=== PATIENT | male | born 1975 | race Caucasian/White ===

== ENCOUNTER → 2017-03-17 | Outpatient (CLI) | payer BC | LOC: LAB 16:36 | DX: L08.9 Local infection of the skin and subcutaneous tissue, unspecified (principal) | CPT/HCPCS: 87070; 87077; 87147; 87186; 87205 ==

== ENCOUNTER 2022-07-31 16:00 | Inpatient (IN) | payer BC ==
[~2022-07-31] VITALS: Ht 185.4 cm; Wt 104.3 kg
[2022-07-31] MEDS ORDERED: FUROSEMIDE20 MG PO (18:58)
[2022-07-31] MEDS ORDERED: OZEMPIC0.25 MG/01 SQ (18:59)
[2022-07-31] MEDS ORDERED: [UNRECOGNIZED DRUG - OTHER] (18:59)
[2022-07-31 22:50] VITALS: BP 134/105
[2022-07-31] MEDS ORDERED: K-TAB ER20 ME1 PO (22:59)
[2022-07-31] MEDS ORDERED: METO25ER PO (23:00)
--- NOTE | 2022-08-01 04:40 | NUR ---
SHIFT SUMMARY 47 YR M ADMITTED ON 07/31/22. FULL CODE. ASSUMED CARE OF PT AT 2245. NO ACUTE CHANGES THIS SHIFT. PT IS A&O X 4 AND IS INDEPENDANT IN THE ROOM. HE STATED THAT HE FEELS LIKE HE IS SUFFOCATING IF HE LAYS FLAT. HE HAS THE BED IN A 75-90 DEGREE POSITION TO BREATHE CONFORTABLY. HE WAS GIVEN DIURETICS IN THE ED AND STATES THAT HE IS FEELING SLIGHTLY BETTER. HE STATED THAT HE WAS VERY TIRED AND HE HAS SLEPT FOR MOST OF THIS SHIFT ALTHOUGH HE HAS BEEN UP TO THE BATHROOM TO URINATE QUITE A FEW TIMES.
[2022-08-01 05:00] VITALS: BP 131/95
[2022-08-01 06:03] LABS: Albumin, Blood 3.7 g/dL (3.4-5.0); Albumin/Globulin Ratio 1.2 (0.8-1.8); Bilirubin, Total 0.8 mg/dL (0.1-1.0); Bun/Creatinine Ratio 18.4 (12.0-20.0); Calcium, Blood 9.4 mg/dL (8.5-10.1); Creatinine, Blood 0.98 mg/dL (0.60-1.20); Globulin, Blood 3.2 g/dL (2.2-4.0); Potassium, Blood 3.7 mmol/L (3.5-5.5); Total Protein, Blood 6.9 g/dL (6.4-8.2)
[2022-08-01 07:48] VITALS: BP 134/96
[2022-08-01 15:33] VITALS: BP 134/94
--- NOTE | 2022-08-01 17:11 | NUR ---
SHIFT SUMMARY PT IS ALERT AND ORIENTED X4. INDEPENDENT IN THE ROOM. DENIES CHEST PAIN. WALKED AROUND UNIT X4 THIS SHIFT. PT REPORTS SOME SOB AFTER AMBULATING TO ELEVATOR. BUT REPORTS THAT IT IS GETTING BETTER EVERY HOUR. NO ACUTE CHANGES THIS SHIFT
[2022-08-02 05:36] VITALS: BP 120/89
--- NOTE | 2022-08-02 07:01 | NUR ---
Shift Summary Pt slept well and states he was able to breath easier last night than he has in a while. Slept well t/o the night.
[2022-08-02 07:21] VITALS: BP 120/95
--- NOTE | 2022-08-02 08:49 | NUR ---
PT REFUSING MEDICATIONS. EDUCATED PATIENT ON BENEFITS AND RISKS OF MEDICATIONS INFORMED PT OF RIGHT TO REFUSE. CALM AND COOPERATIVE.
[2022-08-02 15:04] VITALS: BP 107/88
--- NOTE | 2022-08-02 17:55 | NUR ---
PT IS ALERT AND ORIENTED. DENIES SOB OR PAIN IN CHEST. SPOUSE AT BEDSIDE. PT STATED THAT HE WANTED TO LEAVE TODAY. REMAINS HOPEFUL FOR DISCHARGE. EDUCATED PT ON RIGHTS TO LEAVE IF HE WANTED. TALKED WITH MD TODAY ABOUT PT CONCERNS. NO ACUTE CHANGES. ALERT AND ORIENTED X4. INDEPENDENT.
--- NOTE | 2022-08-02 18:10 | NUR ---
PT EDUCATED ON DIET RECOMMENDATIONS AND FLUID RESTRICTION. PT WILL USE URINAL TO AID IN MEASURING OUTPUT.
[2022-08-02 19:05] VITALS: BP 112/88
[2022-08-03] VITALS (10 sets, daily range): BP systolic 82–120; BP diastolic 56–76
[2022-08-03 04:48] LABS: BASOPHILS ABSOLUTE AUTO 0.05 K/mm3 (0.00-0.23); BASOPHILS PERCENT AUTO 1 % (0-2); EOSINOPHILS ABSOLUTE AUTO 0.23 K/mm3 (0.00-0.68); EOSINOPHILS PERCENT AUTO 3 % (0-6); Hematocrit 39.6 % (37.0-53.0); Hemoglobin 13.4 g/dL (13.5-17.5); IMMATURE GRAN ABSOLUTE AUTO 0.02 K/mm3 (0.00-0.10); IMMATURE GRAN PERCENT AUTO 0 % (0-1); LYMPHOCYTES ABSOLUTE AUTO 2.32 K/mm3 (0.84-5.20); LYMPHOCYTES PERCENT AUTO 31 % (21-46); MONOCYTES ABSOLUTE AUTO 0.53 K/mm3 (0.16-1.47); MONOCYTES PERCENT AUTO 7 % (4-13); Mean Corpuscular HGB 29.8 pg (26.0-34.0); Mean Corpuscular HGB Conc 33.8 g/dL (31.5-36.5); Mean Corpuscular Volume 88 fL (80-100); Mean Platelet Volume 10.1 fL (9.1-12.4); NEUTROPHILS ABSOLUTE AUTO 4.29 K/mm3 (1.96-9.15); NEUTROPHILS PERCENT AUTO 58 % (41-73); Platelet Count 250 K/mm3 (150-400); RDW Coefficient Variation 12.8 % (11.7-14.2); RDW Standard Deviation 40.9 fL (35.1-46.3); White Blood Cell Count 7.44 K/mm3 (4.00-11.30)
[2022-08-03 05:02] LABS: Bun/Creatinine Ratio 22.6 (12.0-20.0); Calcium, Blood 9.5 mg/dL (8.5-10.1); Creatinine, Blood 1.24 mg/dL (0.60-1.20); Potassium, Blood 3.9 mmol/L (3.5-5.5)
--- NOTE | 2022-08-03 05:19 | NUR ---
SHIFT SUMMARY: PT A&O X4. PT PLEASANT AND COOPERATIVE WITH ALL CARE. PT INDEPENDENT IN ROOM. DR. TATE ARRIVED AROUND 2300 FOR CARDIOLOGY CONSULT. PT NPO AFTER MIDNIGHT FOR CARDIAC CATHETERIZATION AND CORONARY ANGIOGRAPHY AT 0900 THIS SHIFT. NS AT 50/HR TO BE STARTED AT 0800. PT ANXIOUS AT BEGINNING OF SHIFT TO GO HOME. PT UNDERSTANDS IMPORTANCE OF STAYING IN HOSPITAL FOR PROCEDURE. ATORVASTATIN AND LISINOPRIL DOASAGE CHANGED PER DR. TATE. CALL LIGHT IN REACH. BED IN LOWEST POSITION. WILL CONTINUE TO MONITOR.
--- NOTE | 2022-08-03 10:35 | NUR ---
LATE ENTRY PT LEFT FOR BMX RIDER AROUND 0915. REPORT GIVEN TO PCU NURSE WHO WILL BE TAKING OVER CARE. PERSONAL ITEMS AND MEDICATIONS DELIVERED TO PCU 15.
== END 2022-08-03 14:26 | disposition short-term general hospital (02) | DRG 286 ==
LOC: ER 16:00 → MEDS 16:01 → PCU 08-03 09:47
PROVIDERS: Internal Medicine; Nurse Practitioner Acute Care; ADMIT Internal Medicine
PROC: 4A023N7 Measurement of Cardiac Sampling and Pressure, Left Heart, Percutaneous Approach (ICD-10-PCS; principal; 2022-08-03)
PROC: B2111ZZ Fluoroscopy of Multiple Coronary Arteries using Low Osmolar Contrast (ICD-10-PCS; 2022-08-03)
DX: I11.0 Hypertensive heart disease with heart failure (principal); I50.23 Acute on chronic systolic (congestive) heart failure; I42.0 Dilated cardiomyopathy; F10.20 Alcohol dependence, uncomplicated; E11.9 Type 2 diabetes mellitus without complications; E78.5 Hyperlipidemia, unspecified; F19.10 Other psychoactive substance abuse, uncomplicated; I08.1 Rheumatic disorders of both mitral and tricuspid valves; I27.20 Pulmonary hypertension, unspecified; Z91.148 Patient's other noncompliance with medication regimen for other reason; I25.2 Old myocardial infarction; Z88.8 Allergy status to other drugs, medicaments and biological substances; Z79.01 Long term (current) use of anticoagulants; Z79.899 Other long term (current) drug therapy; Z87.891 Personal history of nicotine dependence
CPT/HCPCS: 36415; 71260; 76937; 80048; 80053; 82947; 83735; 84484; 85025; 85379; 93005; 93010; 93458; 96374-59; 96376; 96376-59; 99152; 99153; 99285-25; A9270; C1769; C1887; C1894; C8929; G0378; J1644; J1940; J2250; J3010; J7030; J7040; J7050; Q9957; Q9967

== ENCOUNTER → 2022-07-31 | Outpatient (CLI) | payer BC ==
[~2022-07-31] MED LIST: FUROSEMIDE20 MG PO; K-TAB ER20 ME1 PO; METO25ER PO; OZEMPIC0.25 MG/01 SQ; [UNRECOGNIZED DRUG - OTHER]
[2022-07-31 14:30] LABS: BASOPHILS ABSOLUTE AUTO 0.06 K/mm3 (0.00-0.23); BASOPHILS PERCENT AUTO 1 % (0-2); EOSINOPHILS ABSOLUTE AUTO 0.14 K/mm3 (0.00-0.68); EOSINOPHILS PERCENT AUTO 2 % (0-6); Hematocrit 38.5 % (37.0-53.0); Hemoglobin 13.7 g/dL (13.5-17.5); IMMATURE GRAN ABSOLUTE AUTO 0.02 K/mm3 (0.00-0.10); IMMATURE GRAN PERCENT AUTO 0 % (0-1); LYMPHOCYTES ABSOLUTE AUTO 2.28 K/mm3 (0.84-5.20); LYMPHOCYTES PERCENT AUTO 30 % (21-46); MONOCYTES PERCENT AUTO 5 % (4-13); Mean Corpuscular HGB 30.2 pg (26.0-34.0); Mean Corpuscular HGB Conc 35.6 g/dL (31.5-36.5); Mean Corpuscular Volume 85 fL (80-100); NEUTROPHILS ABSOLUTE AUTO 4.74 K/mm3 (1.96-9.15); NEUTROPHILS PERCENT AUTO 62 % (41-73); Platelet Count 273 K/mm3 (150-400); RDW Standard Deviation 39.8 fL (35.1-46.3); Red Blood Cell Count 4.53 M/mm3 (4.30-5.90); White Blood Cell Count 7.64 K/mm3 (4.00-11.30)
[2022-07-31 14:41] LABS: Albumin, Blood 3.9 g/dL (3.4-5.0); Albumin/Globulin Ratio 1.1 (0.8-1.8); Bilirubin, Total 0.8 mg/dL (0.1-1.0); Bun/Creatinine Ratio 15.6 (12.0-20.0); Calcium, Blood 9.7 mg/dL (8.5-10.1); Creatinine, Blood 1.22 mg/dL (0.60-1.20); Globulin, Blood 3.4 g/dL (2.2-4.0); Potassium, Blood 4.3 mmol/L (3.5-5.5); Total Protein, Blood 7.3 g/dL (6.4-8.2)
== END | disposition home or self-care (01) ==
LOC: LAB SHORT 14:24 → LAB 14:24
PROVIDERS: Physician Assistant Surgical
DX: R11.2 Nausea with vomiting, unspecified (principal); R07.9 Chest pain, unspecified
CPT/HCPCS: 80053; 83690; 83880; 84484; 85025

== ENCOUNTER → 2024-05-09 | Outpatient (CLI) | payer BC ==
[2024-05-09 10:51] LABS: BASOPHILS ABSOLUTE AUTO 0.05 K/mm3 (0.00-0.23); BASOPHILS PERCENT AUTO 1 % (0-2); EOSINOPHILS PERCENT AUTO 1 % (0-6); Hematocrit 50.4 % (37.0-53.0); Hemoglobin 17.4 g/dL (13.5-17.5); IMMATURE GRAN ABSOLUTE AUTO 0.02 K/mm3 (0.00-0.10); IMMATURE GRAN PERCENT AUTO 0 % (0-1); LYMPHOCYTES ABSOLUTE AUTO 2.19 K/mm3 (0.84-5.20); LYMPHOCYTES PERCENT AUTO 26 % (21-46); MONOCYTES ABSOLUTE AUTO 0.47 K/mm3 (0.16-1.47); MONOCYTES PERCENT AUTO 6 % (4-13); Mean Corpuscular HGB 30.8 pg (26.0-34.0); Mean Corpuscular HGB Conc 34.5 g/dL (31.5-36.5); Mean Corpuscular Volume 89 fL (80-100); Mean Platelet Volume 9.5 fL (9.1-12.4); NEUTROPHILS ABSOLUTE AUTO 5.46 K/mm3 (1.96-9.15); NEUTROPHILS PERCENT AUTO 66 % (41-73); Platelet Count 285 K/mm3 (150-400); RDW Coefficient Variation 12.4 % (11.7-14.2); RDW Standard Deviation 40.6 fL (35.1-46.3); Red Blood Cell Count 5.65 M/mm3 (4.30-5.90); White Blood Cell Count 8.29 K/mm3 (4.00-11.30)
[2024-05-09 11:03] LABS: Albumin, Blood 4.4 g/dL (3.4-5.0); Albumin/Globulin Ratio 1.1 (0.8-1.8); Bilirubin, Total 0.4 mg/dL (0.1-1.0); Bun/Creatinine Ratio 13.8 (12.0-20.0); Calcium, Blood 9.6 mg/dL (8.5-10.1); Creatinine, Blood 1.09 mg/dL (0.60-1.20); Globulin, Blood 4.1 g/dL (2.2-4.0); Potassium, Blood 4.3 mmol/L (3.5-5.5); Total Protein, Blood 8.5 g/dL (6.4-8.2)
== END ==
LOC: LAB SHORT 10:48 → LAB 10:48
DX: R10.9 Unspecified abdominal pain (principal)
CPT/HCPCS: 80053; 85025

== ENCOUNTER → 2024-07-07 | Outpatient (CLI) | payer BC ==
[2024-07-07 14:51] LABS: Stool Occult Bld Immuno 1 Positive (NEGATIVE)
== END | disposition home or self-care (01) ==
LOC: LAB 06:00 → LAB SHORT 06:00
PROVIDERS: Physician Assistant
DX: Z12.11 Encounter for screening for malignant neoplasm of colon (principal)
CPT/HCPCS: G0328